=== PATIENT | male | born 1945 | race Caucasian/White ===

== ENCOUNTER 2024-10-25 13:59 | Inpatient (IN) | payer OTHER ==
[2024-10-25 14:38] VITALS: BMI 32.2
[2024-10-25 15:27] LABS: ABSOLUTE IMMATURE GRANULOCYTES 0.18 x10^3/uL (0.0-0.031); BASOPHILS # 0.03 x10^3/uL (0.01-0.08); EOSINOPHIL % 2.3 % (0.8-7.0); EOSINOPHILS # 0.29 x10^3/uL (0.04-0.54); MCHC 30.2 g/dl (32.3-36.5); MEAN CELL VOLUME 99.4 fl (79.0-92.2); MEAN PLT VOLUME 9.4 fl (9.4-12.4); MONOCYTE # 1.09 x10^3/uL (0.30-0.82); MONOCYTE % 8.5 % (5.3-12.2); RDW 17.2 % (12.6-16.6)
[2024-10-25 15:31] LABS: INR 1.08 (0.83-1.09); PROTHROMBIN TIME (PATIENT) 11.9 SEC (9.7-13.0)
[2024-10-25 15:34] LABS: ACTIVATED PTT 25.8 SECONDS (25.2-36.5)
[2024-10-25 15:46] LABS: CO2 23 mmol/L (21-32); GLUCOSE,RANDOM 173 mg/dL (74-106)
[2024-10-25 15:49] LABS: SGOT/AST 24 U/L (15-37); SGPT/ALT 17 U/L (13-61)
[2024-10-25 15:50] LABS: CREATININE 1.4 mg/dL (0.55-1.3)
[2024-10-25 15:51] LABS: TOT PROT 6.0 g/dl (6.4-8.2)
[2024-10-25 15:52] LABS: ALK PHOS 115 U/L (45-117)
[2024-10-25] MEDS ORDERED: ACETAMINOPHEN INJECTION 100 ML ONE (16:10)
[2024-10-25] MEDS: ACETAMINOPHEN 1000 MG/100 ML BAG IVPB ONE (16:18)
[2024-10-25] MEDS: SODIUM CHLORIDE 1,000 ML IV ONE (20:10)
[2024-10-25 21:44] LABS: LDH 255 U/L (87-246)
[2024-10-25] MEDS: TAMSULOSIN HCL 0.4 MG CAP PO SCH (21:44)
[2024-10-25] MEDS: GABAPENTIN 300 MG CAPSULE PO SCH (21:44)
[2024-10-25] MEDS: INSULIN ASPART SLIDING SCALE (NOVOLOG) 1 VIAL SQ SCH (21:44)
[2024-10-25] MEDS: PANTOPRAZOLE SODIUM 40 MG VIAL IVPUSH SCH (21:45)
[2024-10-25 21:54] LABS: IRON SERUM 24 ug/dL (50-175)
[2024-10-25] MEDS ORDERED: PANTOPRAZOLE SODIUM 40 MG VIAL IVPUSH SCH (22:00)
[2024-10-25] MEDS ORDERED: PANTOPRAZOLE 40 MG TABLET PO SCH (22:00)
[2024-10-26 09:33] LABS: MCHC 30.6 g/dl (32.3-36.5); MEAN CELL VOLUME 91.7 fl (79.0-92.2); MEAN PLT VOLUME 8.9 fl (9.4-12.4); RDW 22.2 % (12.6-16.6)
[2024-10-26] MEDS ORDERED: amLODIPine BESYLATE 5 MG TABLET (FP) PO SCH (10:00)
[2024-10-26] MEDS ORDERED: LOSARTAN POTASSIUM 25 MG TABLET PO SCH (10:00)
[2024-10-26 10:30] LABS: CO2 23.0 mmol/L (21-32); GLUCOSE,RANDOM 205.0 mg/dL (74-106)
[2024-10-26 10:33] LABS: CREATININE 1.2 mg/dL (0.55-1.3); SGOT/AST 17.0 U/L (15-37); SGPT/ALT 14.0 U/L (13-61); TOT PROT 5.6 g/dl (6.4-8.2)
[2024-10-26 10:36] LABS: ALK PHOS 118.0 U/L (45-117)
[2024-10-26] MEDS: ACETAMINOPHEN 325 MG TABLET (FP) PO PRN (11:43)
[2024-10-26] MEDS: POLYETHYLENE GLYCOL (HEALTHYLAX) 3350 17 GM PACKET PO SCH (13:48)
[2024-10-26 20:29] LABS: ABSOLUTE IMMATURE GRANULOCYTES 0.13 x10^3/uL (0.0-0.031); BASOPHILS # 0.05 x10^3/uL (0.01-0.08); EOSINOPHIL % 2.2 % (0.8-7.0); EOSINOPHILS # 0.22 x10^3/uL (0.04-0.54); MCHC 30.5 g/dl (32.3-36.5); MEAN CELL VOLUME 92.1 fl (79.0-92.2); MEAN PLT VOLUME 8.9 fl (9.4-12.4); MONOCYTE # 0.91 x10^3/uL (0.30-0.82); MONOCYTE % 8.9 % (5.3-12.2); RDW 20.4 % (12.6-16.6)
[2024-10-26] MEDS: SODIUM CHLORIDE 1,000 ML IV SCH (21:56)
[2024-10-27 09:50] LABS: ABSOLUTE IMMATURE GRANULOCYTES 0.09 x10^3/uL (0.0-0.031); BASOPHILS # 0.05 x10^3/uL (0.01-0.08); EOSINOPHIL % 1.9 % (0.8-7.0); EOSINOPHILS # 0.21 x10^3/uL (0.04-0.54); MCHC 30.7 g/dl (32.3-36.5); MEAN CELL VOLUME 90.3 fl (79.0-92.2); MEAN PLT VOLUME 9.1 fl (9.4-12.4); MONOCYTE # 0.82 x10^3/uL (0.30-0.82); MONOCYTE % 7.4 % (5.3-12.2); RDW 20.5 % (12.6-16.6)
[2024-10-27 09:59] LABS: INR 1.15 (0.83-1.09); PROTHROMBIN TIME (PATIENT) 12.7 SEC (9.7-13.0)
[2024-10-27 10:30] LABS: CO2 22.0 mmol/L (21-32); GLUCOSE,RANDOM 207.0 mg/dL (74-106)
[2024-10-27 10:32] LABS: SGPT/ALT 13.0 U/L (13-61)
[2024-10-27 10:34] LABS: CREATININE 1.3 mg/dL (0.55-1.3); SGOT/AST 16.0 U/L (15-37)
[2024-10-27 10:35] LABS: ALK PHOS 109.0 U/L (45-117); TOT PROT 5.2 g/dl (6.4-8.2)
[2024-10-27] MEDS: morphine CARPU-JECT 2 MG/1 ML DISP.SYRIN IVPUSH PRN (10:57)
[2024-10-27] MEDS: SILVER SULFADIAZINE 1% TOP CREAM 400 GM JAR TP SCH (11:27)
[2024-10-27] MEDS: ACETAMINOPHEN 1000 MG/100 ML BAG IVPB PRN (11:28)
[2024-10-27] MEDS: FUROSEMIDE 40 MG/4 ML INJECTABLE VIAL IVPUSH ONE (16:25)
[2024-10-28 09:44] LABS: ABSOLUTE IMMATURE GRANULOCYTES 0.04 x10^3/uL (0.0-0.031); BASOPHILS # 0.05 x10^3/uL (0.01-0.08); EOSINOPHIL % 1.8 % (0.8-7.0); EOSINOPHILS # 0.19 x10^3/uL (0.04-0.54); MCHC 30.9 g/dl (32.3-36.5); MEAN CELL VOLUME 91.4 fl (79.0-92.2); MEAN PLT VOLUME 9.0 fl (9.4-12.4); MONOCYTE # 0.77 x10^3/uL (0.30-0.82); MONOCYTE % 7.4 % (5.3-12.2); RDW 20.2 % (12.6-16.6)
[2024-10-28 09:52] LABS: INR 1.18 (0.83-1.09); PROTHROMBIN TIME (PATIENT) 12.9 SEC (9.7-13.0)
[2024-10-28 10:18] LABS: CO2 22.0 mmol/L (21-32); GLUCOSE,RANDOM 175.0 mg/dL (74-106)
[2024-10-28 10:20] LABS: CREATININE 1.2 mg/dL (0.55-1.3); SGOT/AST 12.0 U/L (15-37); SGPT/ALT 12.0 U/L (13-61)
[2024-10-28 10:21] LABS: TOT PROT 5.2 g/dl (6.4-8.2)
[2024-10-28 10:25] LABS: ALK PHOS 104.0 U/L (45-117)
[2024-10-28] MEDS: SODIUM CHLORIDE 0.9% 500 ML INFUS.BAG IV ONE (13:08)
[2024-10-28] MEDS: POLYETHYLENE GLYCOL 3350 255 GM BTL PO ONE (13:08)
[2024-10-28] MEDS: ACETAMINOPHEN 1000 MG/100 ML BAG IVPB PRN (15:24)
[2024-10-28] MEDS: GABAPENTIN 300 MG CAPSULE PO SCH (19:00)
[2024-10-28] MEDS ORDERED: GABAPENTIN 300 MG CAPSULE PO SCH (22:00)
[2024-10-29 08:47] LABS: ABSOLUTE IMMATURE GRANULOCYTES 0.06 x10^3/uL (0.0-0.031); BASOPHILS # 0.08 x10^3/uL (0.01-0.08); EOSINOPHIL % 2.9 % (0.8-7.0); EOSINOPHILS # 0.33 x10^3/uL (0.04-0.54); MCHC 31.1 g/dl (32.3-36.5); MEAN CELL VOLUME 93.2 fl (79.0-92.2); MEAN PLT VOLUME 8.9 fl (9.4-12.4); MONOCYTE # 0.69 x10^3/uL (0.30-0.82); MONOCYTE % 6.0 % (5.3-12.2); RDW 19.5 % (12.6-16.6)
[2024-10-29 08:58] LABS: INR 1.15 (0.83-1.09); PROTHROMBIN TIME (PATIENT) 12.6 SEC (9.7-13.0)
[2024-10-29 09:11] LABS: CO2 22.0 mmol/L (21-32); GLUCOSE,RANDOM 200.0 mg/dL (74-106)
[2024-10-29 09:14] LABS: SGPT/ALT 14.0 U/L (13-61)
[2024-10-29 09:15] LABS: CREATININE 1.2 mg/dL (0.55-1.3); SGOT/AST 15.0 U/L (15-37)
[2024-10-29 09:16] LABS: TOT PROT 5.7 g/dl (6.4-8.2)
[2024-10-29 09:17] LABS: ALK PHOS 107.0 U/L (45-117)
[2024-10-29] MEDS: morphine CARPU-JECT 2 MG/1 ML DISP.SYRIN IVPUSH PRN (11:16)
[2024-10-29] MEDS: PEG 3350/NA SULF BICARB CL/KCL 4000 ML SOLN.RECON PO ONE (11:37)
[2024-10-29] MEDS: INSULIN (NOVOLOG) ASPART 100 UNITS/ML 10ML VIAL SQ ONE ×2 (13:02→13:05)
[2024-10-29] MEDS: POLYETHYLENE GLYCOL 3350 255 GM BTL PO ONE (14:57)
[2024-10-29] MEDS: COLLAGENASE CLOSTRIDIUM HIST. 30 GRAMS TUBE TP SCH (17:26)
[2024-10-29] MEDS: BISACODYL 5 MG TABLET.DR (FP) PO ONE (22:57)
[2024-10-30] MEDS: morphine CARPU-JECT 2 MG/1 ML DISP.SYRIN IVPUSH PRN (07:53)
[2024-10-30 09:02] LABS: ABSOLUTE IMMATURE GRANULOCYTES 0.05 x10^3/uL (0.0-0.031); BASOPHILS # 0.06 x10^3/uL (0.01-0.08); EOSINOPHIL % 2.6 % (0.8-7.0); EOSINOPHILS # 0.25 x10^3/uL (0.04-0.54); MCHC 30.1 g/dl (32.3-36.5); MEAN CELL VOLUME 93.2 fl (79.0-92.2); MEAN PLT VOLUME 8.8 fl (9.4-12.4); MONOCYTE # 0.77 x10^3/uL (0.30-0.82); MONOCYTE % 8.0 % (5.3-12.2); RDW 18.5 % (12.6-16.6)
[2024-10-30 09:10] LABS: INR 1.17 (0.83-1.09); PROTHROMBIN TIME (PATIENT) 12.8 SEC (9.7-13.0)
[2024-10-30 09:32] LABS: CO2 23.0 mmol/L (21-32); GLUCOSE,RANDOM 228.0 mg/dL (74-106)
[2024-10-30 09:35] LABS: CREATININE 1.0 mg/dL (0.55-1.3); SGOT/AST 11.0 U/L (15-37); SGPT/ALT 13.0 U/L (13-61)
[2024-10-30 09:37] LABS: TOT PROT 5.4 g/dl (6.4-8.2)
[2024-10-30 09:38] LABS: ALK PHOS 103.0 U/L (45-117)
[2024-10-30 15:50] VITALS: RESP 18
[2024-10-30] MEDS: INSULIN (NOVOLOG) ASPART 100 UNITS/ML 10ML VIAL SQ SCH (16:31)
[2024-10-30] MEDS: SODIUM CHLORIDE 1,000 ML IV STA (18:48)
[2024-10-30 19:40] LABS: MCHC 30.0 g/dl (32.3-36.5); MEAN CELL VOLUME 94.3 fl (79.0-92.2); MEAN PLT VOLUME 8.7 fl (9.4-12.4); RDW 18.5 % (12.6-16.6)
[2024-10-30] MEDS: INSULIN GLARGINE (LANTUS) 100 UNITS/ML UNITS SQ SCH (21:03)
[2024-10-31 08:29] LABS: ABSOLUTE IMMATURE GRANULOCYTES 0.06 x10^3/uL (0.0-0.031); BASOPHILS # 0.04 x10^3/uL (0.01-0.08); EOSINOPHIL % 2.7 % (0.8-7.0); EOSINOPHILS # 0.26 x10^3/uL (0.04-0.54); MCHC 29.8 g/dl (32.3-36.5); MEAN CELL VOLUME 95.4 fl (79.0-92.2); MEAN PLT VOLUME 8.8 fl (9.4-12.4); MONOCYTE # 0.65 x10^3/uL (0.30-0.82); MONOCYTE % 6.8 % (5.3-12.2); RDW 18.3 % (12.6-16.6)
[2024-10-31 08:59] LABS: CO2 22.0 mmol/L (21-32); GLUCOSE,RANDOM 222.0 mg/dL (74-106)
[2024-10-31 09:02] LABS: CREATININE 1.2 mg/dL (0.55-1.3); SGOT/AST 13.0 U/L (15-37); SGPT/ALT 13.0 U/L (13-61)
[2024-10-31 09:04] LABS: TOT PROT 5.5 g/dl (6.4-8.2)
[2024-10-31 09:05] LABS: ALK PHOS 106.0 U/L (45-117)
[2024-10-31] MEDS ORDERED: INSULIN ASPART SLIDING SCALE (NOVOLOG) 1 VIAL SQ ONE (11:28)
[2024-10-31] MEDS: CLOPIDOGREL BISULFATE 75 MG TABLET (FP) PO SCH (13:09)
[2024-10-31] MEDS: ASPIRIN 81 MG CHEWABLE TABLETS PO SCH (13:09)
[2024-10-31] MEDS: NAPH,MB-DB/K PH,MBDB POWDER PACKET PO ONE (13:10)
[2024-10-31 16:02] VITALS: BP 129/53; PULSE 96; TEMP 98.2
[2024-10-31] MEDS: ACETAMINOPHEN 325 MG TABLET (FP) PO ONE (16:53)
== END 2024-10-31 17:31 | DRG 378 ==
LOC: JER 13:59 → JERBED 18:30 → J5S 21:21
PROVIDERS: ADMIT Student in an Organized Health Care Education/Training Program; ATTEND Internal Medicine
PROC: 30233N1 Transfusion of Nonautologous Red Blood Cells into Peripheral Vein, Percutaneous Approach (ICD-10-PCS; 2024-10-25)
PROC: 0DB68ZX Excision of Stomach, Via Natural or Artificial Opening Endoscopic, Diagnostic (ICD-10-PCS; 2024-10-30)
PROC: 0DJD8ZZ Inspection of Lower Intestinal Tract, Via Natural or Artificial Opening Endoscopic (ICD-10-PCS; 2024-10-30)
PROC: 0DB98ZX Excision of Duodenum, Via Natural or Artificial Opening Endoscopic, Diagnostic (ICD-10-PCS; principal; 2024-10-30 10:30)
DX: K26.4 Chronic or unspecified duodenal ulcer with hemorrhage (principal); D62 Acute posthemorrhagic anemia; E11.51 Type 2 diabetes mellitus with diabetic peripheral angiopathy without gangrene; I12.9 Hypertensive chronic kidney disease with stage 1 through stage 4 chronic kidney disease, or unspecified chronic kidney disease; F03.90 Unspecified dementia, unspecified severity, without behavioral disturbance, psychotic disturbance, mood disturbance, and anxiety; E11.22 Type 2 diabetes mellitus with diabetic chronic kidney disease; N18.9 Chronic kidney disease, unspecified; E78.5 Hyperlipidemia, unspecified; N40.0 Benign prostatic hyperplasia without lower urinary tract symptoms; L89.152 Pressure ulcer of sacral region, stage 2; E11.621 Type 2 diabetes mellitus with foot ulcer
CPT/HCPCS: 36415; 36430; 71045-TC-FY; 73630-TC-LT; 80053; 82607; 82728; 82746; 82962; 83540; 83550; 83615; 83735; 84100; 84443; 85025; 85027; 85610; 85651; 85730; 86140; 86850; 86900; 86901; 86922; 87070; 87205; 88305-TC; 88342-TC; 93005; 93010; 93306-TC; 93922; 93925-TC; 97116-GP; 97161-GP; 99291; P9038; P9058